=== PATIENT | female | born 1970 | race Caucasian/White ===

== ENCOUNTER → 2022-01-30 | Outpatient (CLI) | payer MEDICARE ==
[~2022-01-30] MED LIST: ALL DAY ALLERGY10 MG PO; NEURONTIN600 MG PO; NORCO 5-325 TA1 EACH PO; PROTONIX40 MG PO; PSEUDOEPHEDRIN120 MG PO
== END ==
LOC: MAMO 15:30
DX: Z12.31 Encounter for screening mammogram for malignant neoplasm of breast (principal)
CPT/HCPCS: 77063; 77067